=== PATIENT | female | born 1980 | race Caucasian/White ===

== ENCOUNTER 2018-07-08 13:48 | Emergency (ER) | payer OTHER ==
[~2018-07-08] VITALS: Ht 157.5 cm; Wt 87.3 kg
[2018-07-08 13:49] VITALS: BP 133/67
[2018-07-08] MEDS ORDERED: IBUP-1022 PO (13:54)
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
== END 2018-07-08 14:58 | disposition home or self-care (01) ==
LOC: M ED 13:48
DX: S99.911A Unspecified injury of right ankle, initial encounter (principal); V86.62XA Passenger of snowmobile injured in nontraffic accident, initial encounter; Y92.89 Other specified places as the place of occurrence of the external cause